=== PATIENT | male | born 1985 | race Caucasian/White ===

== ENCOUNTER 2019-01-30 11:49 | Emergency (ER) | payer MEDICAID ==
[~2019-01-30] VITALS: Ht 180.3 cm; Wt 96.4 kg
[2019-01-30 13:54] LABS: CLARITY,URINE SLIGHTLY CLOUDY (Clear); COLOR,URINE YELLOW (Yellow); GLUCOSE, URINE NEGATIVE (Neg); KETONES,URINE TRACE mg/dl (Neg); LEUKOCYTE ESTERASE ,URINE NEGATIVE (Neg); NITRITES, URINE NEGATIVE (Neg); OCCULT BLOOD,URINE NEGATIVE (Neg); PH,URINE 7.5 (4.8-8.0); PROTEIN,URINE NEGATIVE (Neg)
[2019-01-30 13:55] LABS: UA COLLECTION TYPE NON-SPECIFIED
[2019-01-30 14:04] LABS: AMORPHOUS PHOSPHATES 4+; SQUAMOUS EPITHELIAL CELL,UR MODERATE /LPF (FEW)
[2019-01-30 14:05] LABS: BACTERIA,URINE 2+ /HPF (Neg); RBC,URINE 0-2 /HPF (0-2)
[2019-01-30 14:18] LABS: BASOPHILS % (AUTO) 0.6 % (0-1); EOSINOPHILS # (AUTO) 0.1 X10'3 (0-0.9); EOSINOPHILS % (AUTO) 1.3 % (0-6); HEMATOCRIT 45.3 % (42.0-52.0); HEMOGLOBIN 15.6 g/dl (14.0-17.9); LYMPHOCYTES # (AUTO) 2.5 X10'3 (1.1-4.8); LYMPHOCYTES % (AUTO) 36.1 % (21-51); MEAN CORPUSCULAR HEMOGLOBIN 32.4 PG (27.0-31.0); MEAN CORPUSCULAR HGB CONC 34.4 g/dL (33.0-36.5); MEAN CORPUSCULAR VOLUME 94.2 FL (78-98); MEAN PLATELET VOLUME 8.8 FL (7.4-10.4); MONOCYTES # (AUTO) 0.8 X10'3 (0-0.9); MONOCYTES % (AUTO) 11.2 % (2-12); NEUTROPHILS # (AUTO) 3.5 X10'3 (1.8-7.7); NEUTROPHILS % (AUTO) 50.8 % (42-75); PLATELET COUNT 278 X10'3 (140-440); RED BLOOD COUNT 4.81 X10'6 (4.70-6.10); RED CELL DISTRIBUTION WIDTH 13.9 % (11.5-14.5)
[2019-01-30 14:33] LABS: ALANINE AMINOTRANSFERASE 46 U/L (12-78); ALBUMIN 4.1 G/DL (3.4-5.0); ALBUMIN/GLOBULIN RATIO 0.9 (1.1-1.5); ALKALINE PHOSPHATASE 86 IU/L (46-116); ANION GAP 6 (8-16); ASPARTATE AMINO TRANSFERASE 18 U/L (10-37); BILIRUBIN,TOTAL 0.5 MG/DL (0.1-1.0); BLOOD UREA NITROGEN 18 MG/DL (7-18); BUN/CREATININE RATIO 18.9 (5.4-32.0); CALCIUM 9.3 MG/DL (8.5-10.1); CHLORIDE 104 MMOL/L (99-107); CREATININE 0.95 MG/DL (0.60-1.10); ETHANOL < 0.010 GM/DL (0.0-0.010); GLUCOSE 98 MG/DL (70-104); POTASSIUM 4.4 MMOL/L (3.5-5.1); SODIUM 138 MMOL/L (135-145); TOTAL CARBON DIOXIDE 27.8 MMOL/L (24-32); TOTAL PROTEIN 8.9 G/DL (6.4-8.2); eGFR 90 ML/MIN
[2019-01-30] MEDS ORDERED: nicotine 14mg patch - 24hr TD ONE (15:05)
[2019-01-30] MEDS ORDERED: nicotine 21mg patch - 24 hr TD ONE (15:10)
[2019-01-30] MEDS ORDERED: CEPH250T PO (15:12)
[2019-01-30] MEDS ORDERED: cephalexin 250mg capsule PO ONE (15:15)
[2019-01-30 15:17] LABS: URINE AMPHETAMINE SCREEN NEGATIVE (Neg); URINE BARBITUATE SCREEN NEGATIVE (Neg); URINE BENZODIAZEPINES SCREEN NEGATIVE (Neg); URINE CANNABINOID SCREEN POSITIVE (Neg); URINE COCAINE SCREEN NEGATIVE (Neg); URINE METHADONE SCREEN NEGATIVE (Neg); URINE OPIATE SCREEN NEGATIVE (Neg); URINE PHENCYCLIDINE SCREEN NEGATIVE (Neg)
--- NOTE | 2019-01-30 15:19 | NUR ---
FAXED PACKET [facility]
--- NOTE | 2019-01-30 15:33 | NUR ---
Pt arrived to unit accompanied father and . He is ambulating self in no apparent distress. He is changed into hospital green scrubs and personal items are inventoried and placed in ER ambulance bay lockers. Cell phone and wallet are given to . He denies any past medical or psych diagnoses. He has NKDA. He does not take any medications. He states that he has had anxiety and depression for approximately 14 years. He has had 2 previous suicide attempts, one with meth OD and one with ETOH OD just recently. He reports that he does not go to the doctor and his states that he does not take care of himself. He reports that he has been using IV drugs and ETOH to self medicate. He is from [place], [place] and states that he went at the beginning of December to [facility], but reports he could not be evaluated until February 14. He is a current everyday smoker so a habitrol patch was placed per order. Pt states he feels hopeless. states that they are on the brink of losing their company and . 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 reports that he had started using IV drugs in their home and her and her daughter had to move out. Pt was given a snack and coffee. Denies further needs at this time. Will continue to monitor.
--- NOTE | 2019-01-30 16:30 | NUR ---
Pt is being evaluated by DAVID Marsh.
[2019-01-30] MEDS ORDERED: LORazepam 1 MG tablet PO ONE (17:20)
--- NOTE | 2019-01-30 17:54 | NUR ---
Pt is resting in bed. He reported being anxious and Ativan was given. Keflex also given to Pt per order due to UTI.
--- NOTE | 2019-01-30 19:24 | NUR ---
The patient is resting on his bed and visiting with his family. Discussed the plan of care with the patient. He is cooperative. Reports low back pain 10/04. Reports he has been drinking daily. Denies a history of ETOH withdrawal seizure. He reports he has only been sleeping 3 hours per night. No current signs/symptoms of ETOH withdrawal except high anxiety. Reports passive suicidal thinking but denies active suicidal thoughts.
[2019-01-30] MEDS ORDERED: acetaminophen 325mg tablet PO PRN (19:35)
[2019-01-30] MEDS: quetiapine 100mg tablet PO SCH (20:11)
--- NOTE | 2019-01-30 22:22 | NUR ---
The patient appears to be sleeping
--- NOTE | 2019-01-30 23:36 | NUR ---
report to Niels Rojas.
--- NOTE | 2019-01-31 00:27 | NUR ---
The patient appears to be asleep at this time.
--- NOTE | 2019-01-31 01:55 | NUR ---
The patient appears to be sleeping
--- NOTE | 2019-01-31 04:50 | NUR ---
The patient appears to be asleep at this time.
--- NOTE | 2019-01-31 06:30 | NUR ---
Pt is asleep in bed, appears content. BLL, rails up.
--- NOTE | 2019-01-31 08:00 | NUR ---
Pt woke up for breakfast, RN inquired if anything is needed. Pt requested nicotine patch.
[2019-01-31] MEDS ORDERED: nicotine 21mg patch - 24 hr TD ONE (08:55)
--- NOTE | 2019-01-31 09:30 | NUR ---
RN provided medication instruciton on nicotine patch which is 24 hour (pt keeps on taking off 24 hour nicotine patch earlier).
--- NOTE | 2019-01-31 10:45 | NUR ---
Pt's father came to visit by bedside. He left within minutes since pt has been sleeping.
--- NOTE | 2019-01-31 12:00 | NUR ---
Kamille called again for medical updates. RN advised that pt has been sleeping
--- NOTE | 2019-01-31 12:14 | NUR ---
[facility] called regarding nurse to nurse. RN will also fax TSH lab value
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
[2019-01-31] MEDS ORDERED: LORazepam 1 MG tablet PO ONE (12:45)
--- NOTE | 2019-01-31 14:05 | NUR ---
Pt appeared to be anxious, he got up and used restroom, did not make eye contact with nursing staff. He went back to bed and started to read a book.
--- NOTE | 2019-01-31 15:00 | NUR ---
RN called [facility], was informed that the packet was denied.
--- NOTE | 2019-01-31 15:41 | NUR ---
PT INFO BEING FAXED TO [facility] FROM [facility]. [facility] ALREADY ACCEPTED.
[2019-01-31 17:33] VITALS: BP 130/93
--- NOTE | 2019-01-31 17:51 | NUR ---
Confirmed with [facility] regarding acceptance. The transfer will take place after shift change. RN communicated with pt.
[2019-01-31] MEDS: quetiapine 100mg tablet PO SCH (20:32)
== END 2019-01-31 20:50 ==
LOC: ER 11:50
DX: F32.9 Major depressive disorder, single episode, unspecified (principal); N39.0 Urinary tract infection, site not specified; F10.10 Alcohol abuse, uncomplicated; F12.90 Cannabis use, unspecified, uncomplicated; F11.90 Opioid use, unspecified, uncomplicated; Z79.899 Other long term (current) drug therapy; Y90.0 Blood alcohol level of less than 20 mg/100 ml
CPT/HCPCS: 36415; 80053; 80305; 80320; 81001; 84443; 85025; 87088; 99285

== ENCOUNTER 2019-01-31 20:37 | Inpatient (IN) | payer MEDICAID ==
[~2019-01-31] VITALS: Ht 180.3 cm; Wt 99.0 kg
[~2019-01-31 20:37] MED LIST: CEPH250T PO
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
[2019-01-31] MEDS ORDERED: acetaminophen 325mg tablet PO PRN ×2 (23:00)
[2019-01-31] MEDS ORDERED: magnesium hydroxide 30ml (MOM) UD suspension PO PRN (23:00)
[2019-01-31] MEDS ORDERED: loperamide 2mg capsule PO PRN (23:00)
[2019-01-31] MEDS ORDERED: hydrOXYzine 25 MG tablet PO PRN (23:00)
[2019-01-31] MEDS ORDERED: LORazepam 1 MG tablet PO PRN (23:00)
[2019-01-31] MEDS ORDERED: mag hydrox/Alum hydrox/simeth 30ml oral suspension PO PRN (23:00)
[2019-02-01] MEDS: cephalexin 250mg capsule PO SCH ×4 (07:42→21:53)
[2019-02-01 08:00] VITALS: BP 115/78
[2019-02-01 08:13] LABS: HEMOGLOBIN A1C 5.3 % (4.5-6.2)
[2019-02-01 08:14] LABS: CHOL/HDL RATIO 5.9 (0.00-4.99); CHOLESTEROL 271 MG/DL (0-200); HDL CHOLESTEROL 46 MG/DL (35-60); LDL CHOLESTEROL 211 MG/DL (50-100); TRIGLYCERIDES 192 MG/DL (20-135)
[2019-02-01] MEDS: nicotine 21mg patch - 24 hr TD SCH (09:21)
[2019-02-01] MEDS ORDERED: NICOTINE POLACRILEX 2 MG LOZENGE BC PRN (15:25)
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
[2019-02-01 20:00] VITALS: BP 138/91
[2019-02-01] MEDS ORDERED: prazosin 1mg capsule PO ONE (21:50)
[2019-02-01] MEDS ORDERED: CefTRIAXone 250MG IM Kit w/LIDOcaine IM ONE (22:20)
[2019-02-01] MEDS ORDERED: azithromycin 250mg tablet PO ONE (22:20)
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
[2019-02-02 06:51] LABS: BASOPHILS % (AUTO) 0.6 % (0-1); EOSINOPHILS # (AUTO) 0.1 X10'3 (0-0.9); EOSINOPHILS % (AUTO) 2.2 % (0-6); HEMATOCRIT 44.8 % (42.0-52.0); HEMOGLOBIN 15.5 g/dl (14.0-17.9); LYMPHOCYTES # (AUTO) 2.2 X10'3 (1.1-4.8); MEAN CORPUSCULAR HEMOGLOBIN 32.5 PG (27.0-31.0); MEAN CORPUSCULAR HGB CONC 34.5 g/dL (33.0-36.5); MEAN CORPUSCULAR VOLUME 94.1 FL (78-98); MEAN PLATELET VOLUME 8.8 FL (7.4-10.4); MONOCYTES # (AUTO) 0.7 X10'3 (0-0.9); MONOCYTES % (AUTO) 10.1 % (2-12); NEUTROPHILS # (AUTO) 3.7 X10'3 (1.8-7.7); NEUTROPHILS % (AUTO) 55.1 % (42-75); PLATELET COUNT 221 X10'3 (140-440); RED BLOOD COUNT 4.76 X10'6 (4.70-6.10); RED CELL DISTRIBUTION WIDTH 13.7 % (11.5-14.5); WHITE BLOOD COUNT 6.7 X10'3 (4.5-11.0)
[2019-02-02 07:00] LABS: ALANINE AMINOTRANSFERASE 58 U/L (12-78); ALBUMIN 3.7 G/DL (3.4-5.0); ALBUMIN/GLOBULIN RATIO 0.8 (1.1-1.5); ALKALINE PHOSPHATASE 72 IU/L (46-116); ANION GAP 7 (8-16); ASPARTATE AMINO TRANSFERASE 33 U/L (10-37); BILIRUBIN,TOTAL 0.6 MG/DL (0.1-1.0); BLOOD UREA NITROGEN 16 MG/DL (7-18); CALCIUM 8.7 MG/DL (8.5-10.1); CHLORIDE 105 MMOL/L (99-107); CREATININE 0.94 MG/DL (0.60-1.10); GLUCOSE 104 MG/DL (70-104); POTASSIUM 4.4 MMOL/L (3.5-5.1); SODIUM 139 MMOL/L (135-145); TOTAL CARBON DIOXIDE 27.4 MMOL/L (24-32); TOTAL PROTEIN 8.2 G/DL (6.4-8.2); eGFR > 90 ML/MIN
[2019-02-02 08:00] VITALS: BP 106/82
[2019-02-02] MEDS ORDERED: ESCITALOPRAM OXALATE 5 MG TABLET PO SCH (08:00)
[2019-02-02] MEDS ORDERED: atorvastatin 10mg tablet PO SCH (08:00)
[2019-02-02] MEDS: nicotine 21mg patch - 24 hr TD SCH (08:05)
[2019-02-02] MEDS: cephalexin 250mg capsule PO SCH ×3 (08:05→17:03)
[2019-02-02 09:15] LABS: HIV ANTIBODY 1&2 RAPID NON-REACTIVE (Neg)
[2019-02-02] MEDS ORDERED: ondansetron 4mg rapidly disintigrating tab PO PRN (10:20)
[2019-02-02 11:09] VITALS: BP 125/78
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
--- NOTE | 2019-02-02 15:11 | NUR ---
Met with Ct yesterday and today to complete Psychosocial Assessment and Substance Use Assessment. [place] Addendum: 02/02/19 at 1512 by Kristin Ha SS Amended: Links added.
--- NOTE | 2019-02-02 15:12 | NUR ---
DISCHARGE PLANNING Contacted [facility] to schedule Ct's follow up appts. Appt's are listed in his discharge information. [facility] [place]
[2019-02-02] MEDS ORDERED: PRAZ1CAP5 PO (16:54)
[2019-02-02] MEDS ORDERED: NICO-687 TD (16:54)
[2019-02-02] MEDS ORDERED: ESCI5TAB PO (16:54)
[2019-02-02] MEDS ORDERED: ATOR10TA PO (16:54)
[2019-02-02] MEDS ORDERED: CEPH250C PO (16:54)
--- NOTE | 2019-02-02 19:45 | NUR ---
Pt left unit at 1930 accompanied by NEERAJ Murguia and Mireya with security. Pt ambulated to [facility] with his sister. Pt presented as positive and goal oriented. Pt states "I feel like my eyes have been opened." Pt denies SI, A/VH. Pt was A&O x4 and mood was stable.
[2019-02-02 19:55] VITALS: BP 126/87
[2019-02-02] MEDS ORDERED: prazosin 1mg capsule PO ONE (21:00)
[2019-02-02] MEDS ORDERED: prazosin 1mg capsule PO SCH (21:00)
[2019-02-03 08:35] LABS: HBSAG SCREEN Negative (Negative); HEPATITIS C ANTIBODY <0.1 s/co ratio (0.0-0.9)
== END 2019-02-02 19:30 | disposition home or self-care (01) | DRG 754 ==
LOC: ADULT MH 20:37
PROVIDERS: ADMIT Psychiatry & Neurology Psychiatry; ATTEND Psychiatry & Neurology Psychiatry
DX: F32.9 Major depressive disorder, single episode, unspecified (principal); R45.851 Suicidal ideations; F14.10 Cocaine abuse, uncomplicated; F12.10 Cannabis abuse, uncomplicated; E78.5 Hyperlipidemia, unspecified; F17.210 Nicotine dependence, cigarettes, uncomplicated; F10.20 Alcohol dependence, uncomplicated; F41.9 Anxiety disorder, unspecified; F43.12 Post-traumatic stress disorder, chronic; F15.10 Other stimulant abuse, uncomplicated; N39.0 Urinary tract infection, site not specified; Z79.899 Other long term (current) drug therapy; Z82.49 Family history of ischemic heart disease and other diseases of the circulatory system; Z91.5 Personal history of self-harm; Z71.6 Tobacco abuse counseling; Z71.41 Alcohol abuse counseling and surveillance of alcoholic; Z71.51 Drug abuse counseling and surveillance of drug abuser
CPT/HCPCS: 36415; 80053; 80061; 83036; 85025; 86703; 86706; 86803; 87081; 87340; J0696; Z7610